=== PATIENT | male | born 1945 | race Caucasian/White ===

== ENCOUNTER 2016-08-25 18:44 | Emergency (ER) | payer OTHER ==
[2016-08-25] MEDS ORDERED: methylPREDNISolone NA SUCC 125 MG/2 ML VIAL IVPB ONE (18:50)
--- NOTE | 2016-08-25 18:50 | PDOC ---
History of Present Illness - History of Present Illness Initial Comments: 08/25/16 19:09 Patient is a 71 year old male with significant medical hx of vocal cord cancer who is presenting to the ED with progressive dyspnea for three days. Patient is accompanied by [id number] (caregiver) who reports that the patient has undergone 27 rounds of chemotherapy and radiation but afterwards stopped treatment and refused any more (03/2016). He reportedly had a CT scan in 2016 that was clear. Patient has been doing well until three days ago when he began having worsening dyspnea. The patient was brought in today by private vehicle because of worsening symptoms. He was found to have stridor on arrival and low O2Sat at 91%. Patient denies any fever, chills, cough, chest pain, dizziness, nausea, vomiting. Sandblaster Glass: uJn Anderson MD PAST MEDICAL HISTORY: HTN, HLD, DM, vocal cord cancer PAST SURGICAL HISTORY: no significant history FAMILY HISTORY: no pertinent history SOCIAL HISTORY: Pt lives with family and is employed. MEDICATIONS: reviewed ALLERGIES: As per nursing notes General: No fevers or chills, no weakness, no weight loss HEENT: No change in vision. No sore throat,. No ear pain CardioVascular: No chest pain Respiratory: Dyspnea. No cough, or wheezing. Gastrointestinal: no nausea, vomiting, diarrhea or constipation, No rectal bleeding Genitourinary: No dysuria, hematuria, or frequency Musculoskeletal: No joint or muscle pain or swelling Neurologic: No headache, vertigo, dizziness or loss of consciousness Psychiatric: nor depression Skin: No rashes or easy bruising Endocrine: no increased thirst or abnormal weight change Allergic: no skin or latex allergy All other systems reviewed and normal General: Obese, no acute distress HEENT: Posterior oropharynx difficulty to visualize. Uvula does appear slightly enlarged. Otherwise unable to visualize other posterior oropharnyx tissues. Neck: Supple, no meningeal signs, no lymphadenopathy Eyes: Pupils equal reactive and round, extraocular motion intact Chest: Nontender to palpation Cardiac: S1-S2 normal, regular rate and rhythm, no murmurs rubs or gallops Respiratory: Stridor with inspiration. Lungs are clear. Air movement is difficult to ascertain but able to hear good expiratory phase of the respiratory cycle Abdomen: Soft, nondistended, normal bowel sounds, nontender to palpation diffusely Extremities: Warm, dry, no cyanosis, clubbing, or edema Skin: No rashes Neuro: Alert and oriented x3, nonfocal exam, grossly intact, normal gait Psych: Normal mood and affect <Nessa Bain - Last Filed: 08/25/16 20:27> - General History Source: Family Exam Limitations: No Limitations - History of Present Illness Initial Comments: 08/25/16 20:21 A portion of this note was documented by scribe services under my direction. I have reviewed the details of the note, within reason, and agree with the documentation. The case summary and management plan written by me. Assessment and plan: This is a 71-year-old male with history of focal cord cancer who is received multiple rounds of chemotherapy and radiation therapy who comes in with difficulty breathing. Patient came in by private vehicle. Patient is a patient of another group of doctors at [facility] where he is receiving his treatments. Patient had a CAT scan that shows marketed least severe narrowing of his airway secondary to some edema as well as an infiltrative process. Patient condition was given a dose of Solu-Medrol 125 mg IV Patient is stable with his O2 sats at 98% on some room air with good air movement but stridorous Patient will be transferred to [facility] for ENT services I did discuss with his ENT doctor over at [facility] who recommended that he be transferred [facility] rather than to [facility] where his doctor is. <Christopher Chong I - Last Filed: 08/25/16 21:43> - General Chief Complaint: Respiratory Stated Complaint: DIFFICULTY BREATHING STRIDOR Past History <Nessa Bain - Last Filed: 08/25/16 20:27> - Past Medical History CVA: Yes Diabetes: Yes HTN: Yes Hypercholesterolemia: Yes - Psycho/Social/Smoking Cessation Hx Suicidal Ideation: No Smoking Status: Yes Smoking History: Former smoker Years of Tobacco Use: 50 Have you smoked in the past 12 months: No Number of Cigarettes Smoked Daily: 0 If you are a former smoker, when did you quit?: Over 50 years ago Hx Alcohol Use: No Drug/Substance Use Hx: No Substance Use Type: None Hx Substance Use Treatment: No <Christopher Chong I - Last Filed: 08/25/16 21:43> - Past Medical History Allergies/Adverse Reactions: Allergies Allergy/AdvReac Type Severity Reaction Status Date / Time No Known Allergies Allergy Verified 08/25/16 18:46 Home Medications: Ambulatory Orders Aspirin [ASA] 81 mg PO DAILY 09/21/11 Amlodipine Besylate [Norvasc -] 10 mg PO DAILY #0 tablet 09/26/11 Metformin HCl [Glucophage] 1,000 mg PO BID #0 tab 09/26/11 Simvastatin 20 mg PO HS #0 tablet 09/26/11 Aspirin/Dipyridamole [Aggrenox -] 25 mg PO BID 08/25/16 Enalapril Maleate 20 mg PO BID 08/25/16 Furosemide [Lasix] 20 mg PO DAILY 08/25/16 Glipizide 10 mg PO BID 08/25/16 Omeprazole 20 mg PO DAILY 08/25/16 Silodosin [Rapaflo] 8 mg PO DAILY 08/25/16 Vitamin D3 50,000 unit PO WEEKLY 08/25/16 Heart Score/ECG Review #1 08/25/16 20:27 Sinus rhythm at 80 bpm with occasional premature ventricular complexes Otherwise normal ECG <Nessa Bain - Last Filed: 08/25/16 20:27> ED Treatment Course - LABORATORY CBC & Chemistry Diagram: 08/25/16 18:55 08/25/16 18:55 - RADIOLOGY Radiograph Interpretation: 08/25/16 20:24 Chest X-Ray Impression: Cardiac silhouette is now moderately enlarged. Rule out pericardial effusion. No acute lung disease is present. Reported By: Yane Miles MD Neck CT Impression: Essentially circumferential soft tissue swelling around the airway involving the entire hypopharynx down to the level of the larynx including the prevertebral space with asymmetric soft tissue prominence involving the left lateral laryngeal wall relative to the right resulting in moderately severe narrowing of the airway consistent with edema and likely infiltrative process in view of the clinical history of laryngeal cancer. ENT evaluation is recommended to determine further evaluation. Case discussed with Dr. Menon, emergency room caring attending physician. Reported By: Yane Miles MD - Medications Given in the ED: ED Medications Discontinued Medications Generic Name Dose Route Start Last Admin Trade Name Freq PRN Reason Stop Dose Admin Methylprednisolone Sodium Succinate 125 mg 08/25/16 18:50 08/25/16 19:02 Solu-Medrol - IVPB 08/25/16 18:51 125 mg ONCE ONE Administration <Nessa Bain - Last Filed: 08/25/16 20:27> - LABORATORY CBC & Chemistry Diagram: 08/25/16 18:55 08/25/16 18:55 <Christopher Chong I - Last Filed: 08/25/16 21:43> *DC/Admit/Observation/Transfer - Attestations Scribe Attestion: 08/25/16 19:19 Documentation prepared by Nessa Bain, acting as medical assisting instructor for Christopher Chong MD. <Nessa Bain - Last Filed: 08/25/16 20:27> <Christopher Chong I - Last Filed: 08/25/16 21:43> Diagnosis at time of Disposition: Stridor, Malignant neoplasm of vocal cord - Discharge Dispostion Disposition: TRANSFER ACUTE CARE/OTHER HOSP Condition at time of disposition: Guarded
[2016-08-25] MEDS ORDERED: methylPREDNISolone NA SUCC 125 MG/2 ML VIAL ONE (18:58)
[2016-08-25 19:10] LABS: BASOPHIL 4.1 % (0-2.0); EOSINOPHIL 0.2 % (0-4.5); MCHC 33.8 g/dl (32.0-35.9); MEAN CELL VOLUME 88.6 fl (80-96); MEAN PLT VOLUME 7.9 fl (7.5-11.1); NEUTROPHILS 77.7 % (42.8-82.8); PLATELET COUNT 190 K/MM3 (134-434); RDW 12.5 % (11.9-15.9); WHITE BLOOD COUNT 9.7 K/mm3 (4.0-10.8)
[2016-08-25 19:29] LABS: ALBUMIN 3.5 g/dl (3.5-5.0); ALK PHOS 51 U/L (32-92); ANION GAP 7 (8-16); CALCIUM 8.6 mg/dl (8.4-10.2); CO2 32 mmol/L (22-28); CREATININE 0.6 mg/dl (0.6-1.3); GLUCOSE,RANDOM 132 mg/dl (74-106); SGOT/AST 22 U/L (10-42); SGPT/ALT 22 U/L (10-40); TOT PROT 6.8 g/dl (6.4-8.3)
[2016-08-25 19:35] LABS: CPK(DFH) 235 IU/L (38-174)
[2016-08-25 19:42] LABS: TROPONIN I (DFP) < 0.03 ng/ml (0.03-0.50)
[2016-08-25 19:46] LABS: CK MB 7.6 ng/ml (0.3-4.0)
[2016-08-25 20:02] VITALS: BMI 35.4
[2016-08-25 20:19] LABS: BILIRUBIN,TOTAL < 0.3 mg/dl (0.2-1.0)
[2016-08-25 21:05] VITALS: BP 142/66; PULSE 76; TEMP 98.6
--- NOTE | 2016-08-26 08:29 | EKG ---
Test Reason : Blood Pressure : / mmHG Vent. Rate : 080 BPM Atrial Rate : 080 BPM P-R Int : 136 ms QRS Dur : 090 ms QT Int : 366 ms P-R-T Axes : 065 043 061 degrees QTc Int : 422 ms SINUS RHYTHM WITH OCCASIONAL PREMATURE VENTRICULAR COMPLEXES OTHERWISE NORMAL ECG WHEN COMPARED WITH ECG OF 10-DEC-2009 09:47, PREMATURE VENTRICULAR COMPLEXES ARE NOW PRESENT PREMATURE ATRIAL COMPLEXES ARE NO LONGER PRESENT T WAVE INVERSION NO LONGER EVIDENT IN ANTERIOR LEADS Confirmed by ZELALEM GALARZA MD ([id number]) on 08/26/2016 8:28:47 AM Referred By: DR PEDRO Confirmed By:ZELALEM GALARZA MD
== END 2016-08-25 21:24 | disposition short-term general hospital (02) ==
LOC: FER 18:44
PROC: 3E033GC Introduction of Other Therapeutic Substance into Peripheral Vein, Percutaneous Approach (ICD-10-PCS; principal; 2016-08-25)
DX: C32.0 Malignant neoplasm of glottis (principal); R06.1 Stridor; I10 Essential (primary) hypertension; E78.00 Pure hypercholesterolemia, unspecified; E11.9 Type 2 diabetes mellitus without complications
CPT/HCPCS: 36415; 70490-TC; 71010-TC; 80053; 82550; 82553; 83880; 84484; 85025; 93005; 96374; 99284-25